=== PATIENT | female | born 1995 | race Caucasian/White ===

== ENCOUNTER 2023-12-18 12:22 | Emergency (ER) | payer OTHER ==
[~2023-12-18] VITALS: Ht 162.6 cm; Wt 65.8 kg
[2023-12-18] MEDS: IV NORMAL SALINE 1000 ML BAG IV ONE (12:20)
[2023-12-18] MEDS ORDERED: ACETAMINOPHEN ES 500 MG TABLET ONE (12:45)
[2023-12-18] MEDS ORDERED: KETOROLAC TROMETHAMINE 15 MG INJ ONE (12:45)
[2023-12-18 12:59] LABS: *BILIRUBIN,URIN NEGATIVE (NEGATIVE); *BLOOD, URINE NEGATIVE (NEGATIVE); *CLARITY,URINE CLEAR (CLEAR); *COLOR,URINE YELLOW (YELLOW); *KETONES,URINE NEGATIVE (NEGATIVE); *PROTEIN,URINE NEGATIVE (NEGATIVE); *UROBILINOGEN,URINE 0.2 E.U./dl (NORMAL); LEUKOCYTE ESTERASE ,URINE TRACE (NEGATIVE); NITRITE, URINE NEGATIVE (NEGATIVE); UGLUCOSE NEGATIVE (NEGATIVE)
[2023-12-18 13:00] LABS: *URINE HCG, QUAL NEGATIVE (NEGATIVE)
[2023-12-18] MEDS: KETOROLAC TROMETHAMINE 15 MG INJ IVP ONE (13:10)
[2023-12-18 13:12] LABS: *AMPHETAMINE, URINE NEGATIVE (NEGATIVE); *BARBITURATE, URINE NEGATIVE (NEGATIVE); *BENZODIAZEPINE, URINE NEGATIVE (NEGATIVE); *CANNABINOID, URINE NEGATIVE (NEGATIVE); *COCCAINE, URINE NEGATIVE (NEGATIVE); *OPIATE, URINE NEGATIVE (NEGATIVE); *PHENCYCLIDINE SCREEN,URINE NEGATIVE (NEGATIVE)
[2023-12-18] MEDS: ACETAMINOPHEN ES 500 MG TABLET PO ONE (13:17)
[2023-12-18 13:19] LABS: BASOPHILS # (AUTO) 0.2 K/UL (0.0-0.2); BASOPHILS % (AUTO) 2.7 % (0.0-2.0); EOSINOPHILS % (AUTO) 0.6 % (0.0-7.0); HEMATOCRIT 32.2 % (31.2-41.9); HEMOGLOBIN 9.9 g/dL (10.9-14.3); LYMPHOCYTES # (AUTO) 1.6 K/uL (0.8-4.8); LYMPHOCYTES % (AUTO) 23.6 % (20.5-51.5); MEAN CORPUSCULAR HEMOGLOBIN 22.2 uug (24.7-32.8); MEAN CORPUSCULAR HGB CONC 31 g/dL (32.3-35.6); MEAN CORPUSCULAR VOLUME 72.5 fL (75.5-95.3); MONOCYTES # (AUTO) 0.5 K/uL (0.1-1.30); MONOCYTES % (AUTO) 7.4 % (0.0-11.0); NEUTROPHILS # (AUTO) 4.5 K/uL (1.8-8.9); NEUTROPHILS % (AUTO) 65.7 % (38.5-71.5); PLATELET COUNT (AUTO) 351 K/uL (179-408); RED BLOOD CELL COUNT(AUTO) 4.44 MIL/uL (3.63-4.92); RED CELL DISTRIBUTION WIDTH 17.6 % (12.3-17.7); WHITE BLOOD COUNT (AUTO) 6.8 K/uL (3.8-11.8)
[2023-12-18 13:30] LABS: FENTANYL, URINE NEGATIVE (NEGATIVE)
[2023-12-18 13:31] LABS: CALCIUM 8.6 mg/dL (8.5-10.1); CARBON DIOXIDE 24 mmol/L (21-32); CHLORIDE 103 mmol/L (98-107); CREATININE 0.6 mg/dL (0.6-1.3); GLUCOSE 89 mg/dL (74-106); POTASSIUM 3.9 mmol/L (3.5-5.1); SODIUM SERUM 136 mmol/L (136-145); UREA NITROGEN, BLOOD 15 mg/dL (7-18)
[2023-12-18 13:32] LABS: ETHANOL < 3 MG/DL (0-10)
[2023-12-18 13:36] LABS: CREATINE KINASE, TOTAL 70 U/L (26-192)
[2023-12-18 14:11] VITALS: BP 112/80; TEMP 97.7; O2SAT 99
[2023-12-18 14:15] LABS: BACTERIA,URINE NONE SEEN /HPF (NONE SEEN); RBC,URINE 0-3 /HPF (0-3); SQUAMOUS EPITHELIAL CELL,UR FEW /HPF (NONE SEEN); WBC,URINE 0-3 /HPF (0-3)
== END 2023-12-18 14:19 | disposition home or self-care (01) ==
LOC: ER 12:22
DX: F15.10 Other stimulant abuse, uncomplicated (principal); R10.2 Pelvic and perineal pain; F41.9 Anxiety disorder, unspecified; R20.2 Paresthesia of skin; R07.89 Other chest pain
CPT/HCPCS: 80048; 81001; 82550; 84703; 85025; 84484; 36415; 93005; 71045; 70450; 99285; 96361; 96374; 80320; 80307; J1885; J7040; A4606; A4663; A9150; G0480